=== PATIENT | female | born 1970 | race African-American/Black ===

== ENCOUNTER 2016-10-07 12:05 | Emergency (ER) | payer BC | END 2016-10-07 12:41 | disposition home or self-care (01) | LOC: ER 12:05 | PROC: 0HQGXZZ Repair Left Hand Skin, External Approach (ICD-10-PCS; principal; 2016-10-07) | DX: S61.215A Laceration without foreign body of left ring finger without damage to nail, initial encounter (principal); I10 Essential (primary) hypertension; Z91.040 Latex allergy status; W45.8XXA Other foreign body or object entering through skin, initial encounter | CPT/HCPCS: 90714; 99282 ==

== ENCOUNTER 2016-10-14 15:08 | Emergency (ER) | payer BC | END 2016-10-14 16:00 | disposition home or self-care (01) | LOC: ER 15:08 | DX: Z48.02 Encounter for removal of sutures (principal) | CPT/HCPCS: 99281 ==